=== PATIENT | male | born 1935 | race Caucasian/White ===

== ENCOUNTER 2018-04-14 15:06 | Outpatient (RCR) | payer OTHER, SELFPAY ==
[2018-04-14 21:04] LABS: Anion Gap 9.7 mmol/L (3-11); BUN 17 mg/dL (7-18); CO2 27.3 mmol/L (21.0-32.0); CREATININE 0.88 mg/dL (0.70-1.30); Calcium 8.8 mg/dL (8.5-10.1); Chloride 102 mmol/L (98-107); Glucose 85 mg/dL (70-100); Potassium 4.2 mmol/L (3.5-5.1); Sodium 139 mmol/L (136-145)
== END 2018-04-20 23:59 | disposition home or self-care (01) ==
LOC: NCHCN 15:06
PROVIDERS: PCP Internal Medicine; Visit Provider Internal Medicine
DX: I10 Essential (primary) hypertension (principal)
CPT/HCPCS: 80048

== ENCOUNTER 2020-04-04 15:21 | Outpatient (REF) | payer OTHER, SELFPAY ==
[2020-04-04 21:46] LABS: Anion Gap 10.9 mmol/L (3-11); BUN 17 mg/dL (7-18); CO2 24.1 mmol/L (21.0-32.0); CREATININE 0.81 mg/dL (0.70-1.30); Calcium 8.6 mg/dL (8.5-10.1); Chloride 107 mmol/L (98-107); Glucose 87 mg/dL (74-106); Potassium 4.2 mmol/L (3.5-5.1); Sodium 142 mmol/L (136-145)
== END 2020-04-04 15:41 ==
LOC: NCHCN 15:21
PROVIDERS: PCP Internal Medicine; Visit Provider Internal Medicine
DX: I10 Essential (primary) hypertension (principal)
CPT/HCPCS: 80048

== ENCOUNTER 2021-04-08 15:59 | Outpatient (REF) | payer OTHER, SELFPAY ==
[2021-04-08 22:09] LABS: Anion Gap 6.3 mmol/L (3-11); BUN 19 mg/dL (7-18); CO2 28.7 mmol/L (21.0-32.0); CREATININE 0.8 mg/dL (0.70-1.30); Calcium 8.8 mg/dL (8.5-10.1); Calculated LDL 56 mg/dL (<100); Chloride 106 mmol/L (98-107); Cholesterol 125 mg/dL (<200); Glucose 82 mg/dL (74-106); HDL Cholesterol 48 mg/dL (40-60); Potassium 4.4 mmol/L (3.5-5.1); Sodium 141 mmol/L (136-145); Triglyceride 105 mg/dL (<150)
== END 2021-04-08 16:00 | disposition home or self-care (01) ==
LOC: NCHCN 15:59
PROVIDERS: PCP Internal Medicine; Visit Provider Internal Medicine
DX: I10 Essential (primary) hypertension (principal); I89.0 Lymphedema, not elsewhere classified; E78.5 Hyperlipidemia, unspecified; Z86.79 Personal history of other diseases of the circulatory system
CPT/HCPCS: 80048; 80061

== ENCOUNTER 2022-04-27 18:26 | Outpatient (REF) | payer OTHER, SELFPAY ==
[2022-04-27 16:09] LABS: Anion Gap 6.8 mmol/L (3-11); BUN 19 mg/dL (7-18); CO2 26.2 mmol/L (21.0-32.0); CREATININE 0.8 mg/dL (0.70-1.30); Calcium 8.7 mg/dL (8.5-10.1); Chloride 106 mmol/L (98-107); Estimated GFR 87.27 (mL/min/1.73m2); Glucose 94 mg/dL (74-106); Potassium 4.1 mmol/L (3.5-5.1); Sodium 139 mmol/L (136-145)
== END 2022-04-27 18:27 | disposition home or self-care (01) ==
LOC: NCHCN 18:26
PROVIDERS: PCP Internal Medicine; Visit Provider Internal Medicine
DX: I10 Essential (primary) hypertension (principal); E78.5 Hyperlipidemia, unspecified; Z86.79 Personal history of other diseases of the circulatory system
CPT/HCPCS: 80048

== ENCOUNTER 2023-02-19 17:45 | Outpatient (REF) | payer OTHER, SELFPAY ==
[2023-02-22 09:54] LABS: Lyme Ab w Rflx to Lyme Confirm Negative (Negative)
[2023-02-22 14:29] LABS: Anaplasma phagocytophilum Negative (Negative); B. miyamotoi PCR Negative (Negative); Babesia divergens/MO-1 Negative (Negative); Babesia duncani Negative (Negative); Babesia microti Negative (Negative); Ehrlichia chaffeensis Negative (Negative); Ehrlichia ewingii/canis Negative (Negative); Ehrlichia muris eauclairensis Negative (Negative)
== END 2023-02-19 17:46 | disposition home or self-care (01) ==
LOC: NCHCN 17:45
PROVIDERS: PCP Internal Medicine; Visit Provider Internal Medicine
DX: I89.0 Lymphedema, not elsewhere classified (principal)
CPT/HCPCS: 87798; 86618

== ENCOUNTER 2023-09-20 21:05 | Outpatient (REF) | payer OTHER, SELFPAY ==
[2023-09-20 21:07] LABS: HCT 48.3 % (40.0-50.0); HGB 15.4 g/dL (13.5-17.5); MCH 29.2 pg (27.0-33.0); MCHC 31.9 % (32.0-36.0); MCV 92 fL (80-95); MPV 10.2 fL (8.0-11.0); Platelet Count 157 10^3/uL (130-400); RBC 5.28 10^6/uL (4.36-5.78); RDW-SD 47.3 fL; WBC 6.28 10^3/uL (4.4-10.8)
[2023-09-20 21:20] LABS: ALT 21 U/L (16-63); AST 17 U/L (15-37); Albumin 3.9 g/dL (3.4-5.0); Alkaline Phosphatase 54 U/L (46-116); BUN 22 mg/dL (7-18); Bilirubin, Total 0.5 mg/dL (0.2-1.0); CREATININE 0.8 mg/dL (0.70-1.30); Chloride 109 mmol/L (98-107); Estimated GFR 86.73 (mL/min/1.73m2); Glucose 85 mg/dL (74-106); Potassium 4.2 mmol/L (3.5-5.1); Sodium 141 mmol/L (136-145); Total Protein 7.1 g/dL (6.4-8.2)
== END 2023-09-20 21:06 | disposition home or self-care (01) ==
LOC: NCHCN 21:05
PROVIDERS: PCP Internal Medicine; Visit Provider Family Medicine
DX: Z00.00 Encounter for general adult medical examination without abnormal findings (principal)
CPT/HCPCS: 80053; 85027

== ENCOUNTER 2024-02-06 19:34 | Emergency (ER) | payer OTHER, SELFPAY ==
[2024-02-06] VITALS (43 sets, daily range): BP systolic 149–204; BP diastolic 48–89; PULSE 57–92; RESP 13–26; TEMP 36.7; O2SAT 91–97
--- NOTE | 2024-02-06 19:15 | RT.EKG_ITS ---
APPROVED REPORT Exam: Resting ECG Reason for Exam: chest pain Patient Location: E HR:62 bpm ECG Measurements Heart Rate 62 AXIS ME 231 P 35 QRSd 166 QRS -21 QT 452 T 157 QTc 459 Conclusion Sinus rhythm LBBB 1st degree heart block No STEMI
--- NOTE | 2024-02-06 19:30 | DI.CT_ITS ---
Exam(s) CT BRAIN NECK CTA EXAM: CT BRAIN NECK CTA CLINICAL HISTORY: Stroke. TECHNIQUE: Imaging Protocol: Axial CT angiography was performed with multi-slice acquisition and mu lti-planar and MIP reconstructions. CONTRAST MATERIAL: Intravenous: Omnipaque 350 Contrast volume:70 ml COMPARISON: No exams were available for comparison FINDINGS: CT Head W/O and W contrast: Ventricles and Extra axial spaces: Normal in size and morphology for the patient's age. Hemorrhage: None. Cerebral parenchyma: No evidence of acute infarct or mass. Prominent atrophy. Mild white matter c hanges of small vessel disease. Midline shift: None. Brainstem/Cerebellum: No acute findings.. Calvarium: Normal. Visualized Paranasal sinuses/Mastoids: Minimal mucosal thickening. Soft Tissues: Unremarkable. Enhancement: Normal. CTA Brain W: Internal Carotid Arteries: Petrous: Normal. Cavernous: Normal. Cerebral: Normal. Middle Cerebral Arteries: Right: No aneurysm, occlusion or significant stenosis. Left: No aneurysm, occlusion or significant stenosis. Anterior Cerebral Arteries: Right: No aneurysm, occlusion or significant stenosis. Left: No aneurysm, occlusion or significant stenosis. Posterior cerebral Arteries: Right: No aneurysm, occlusion or significant stenosis. Left: No aneurysm, occlusion or significant stenosis. Vertebral Arteries: Right: No aneurysm, occlusion or significant stenosis. Left: No aneurysm, occlusion or significant stenosis. Basilar Artery: No aneurysm, occlusion or significant stenosis. CTA Neck W: Common Carotid: Right: Minimal plaque. No dissection, occlusion or significant stenosis. Left: Mild calcific plaque at bulb. No dissection, occlusion or significant stenosis. External Carotid: Right: No dissection, occlusion or significant stenosis. Left: No dissection, occlusion or significant stenosis. Internal Carotid: Right: No dissection, occlusion or significant stenosis. Left: No dissection, occlusion or significant stenosis. Vertebral Artery: Right: No dissection, occlusion or significant stenosis. Left: No dissection, occlusion or significant stenosis. Lung Apices: No acute findings. Bones: No acute abnormality. Degenerative changes in the spine. Soft Tissues: Normal. IMPRESSION: 1. CTA brain: Normal CTA examination of the [place]. 2. Head CT: Atrophy. No acute abnormality. 3. CTA neck: No evidence of significant stenosis or dissection.. RADIATION DOSE DELIVERED: Total DLP DATA REPOSITORY: All CT scans at this facility are submitted to the National Radiology Data Registry (NRDR) Dose Index Registry (DIR) with the [employer] (ACR). RADIATION OPTIMIZATION: All CT scans at this facility use at least one of these dose optimization te chniques: automated exposure control; mA and/or kV adjustment per patient size (includes targeted exa ms where dose is matched to clinical indication); or iterative reconstruction.
--- NOTE | 2024-02-06 19:30 | RT.EKG_ITS ---
APPROVED REPORT Exam: Resting ECG Reason for Exam: CVA Patient Location: E HR:59 bpm ECG Measurements Heart Rate 59 AXIS RI 238 P 37 QRSd 173 QRS -19 QT 462 T 152 QTc 459 Conclusion Sinus bradycardia Rate 59 LBBB No STEMI, no priors available for comparison
--- NOTE | 2024-02-06 19:30 | RESPIRATORY ---
RT. responded to stroke alert. RT followed pt. upto CT scan, pt. talking in full sentences without respiratory distress or Pt. alert, following commands and maintaining patent airway spontaneously. MD verbally notified before RT left.
[2024-02-06] MEDS: Normal Saline - Diluent 50 ML VIAL IJ (19:51)
[2024-02-06] MEDS: Omnipaque 350 MG/ML 100 ML BTL IJ (19:54)
--- NOTE | 2024-02-06 20:19 | DI.VRAD_ITS ---
PROCEDURE INFORMATION: Exam: CTA Head Without And With Contrast, Arteriography Exam date and time: 02/06/2024 7:46 PM Age: 88 years old Clinical indication: Stroke-like symptoms; Left facial droop TECHNIQUE: Imaging protocol: Computed tomographic angiography of the head without and with contrast. Exam focused on the arteries. 3D rendering (Not supervised by radiologist): MIP and/or 3D reconstructed images were created by the technologist. Contrast material: 350; Contrast volume: 70 ml; Contrast route: INTRAVENOUS (IV); Other technique: STROKE PROTOCOL was implemented. COMPARISON: No relevant prior studies available. FINDINGS: ANTERIOR CIRCULATION: Right internal carotid artery: Intracranial segment is patent with no significant stenosis or occlusion. No aneurysm. Right middle cerebral artery: No occlusion or significant stenosis. No aneurysm. Right anterior cerebral artery: No occlusion or significant stenosis. No aneurysm. Left internal carotid artery: Intracranial segment is patent with no significant stenosis. No aneurysm. Left middle cerebral artery: No occlusion or significant stenosis. No aneurysm. Left anterior cerebral artery: No occlusion or significant stenosis. No aneurysm. POSTERIOR CIRCULATION: Right vertebral artery: No occlusion or significant stenosis. No aneurysm. Left vertebral artery: No occlusion or significant stenosis. No aneurysm. Basilar artery: No occlusion or significant stenosis. No aneurysm. Right posterior cerebral artery: No occlusion or significant stenosis. No aneurysm. Left posterior cerebral artery: No occlusion or significant stenosis. No aneurysm. HEAD: Brain: No hemorrhage. Mild white matter disease. No mass effect. Cerebral ventricles: Normal. No ventriculomegaly. Bones: Unremarkable. No acute fracture. Paranasal sinuses: Visualized sinuses are normal. No fluid levels. Mastoid air cells: Visualized mastoids are normal. No mastoid effusion. Soft tissues: Unremarkable. IMPRESSION: 1. No large vessel occlusion. 2. Unremarkable CT head. ASSESSMENT: ASPECTS ([place] Stroke Program Early CT Score) is 10. PROCEDURE INFORMATION: Exam: CTA Neck Without And With Contrast Exam date and time: 02/06/2024 7:46 PM Age: 88 years old Clinical indication: Stroke-like symptoms; Left facial droop TECHNIQUE: Imaging protocol: Computed tomographic angiography of the neck without and with contrast. Exam focused on the cervical segments of the vasculature. 3D rendering (Not supervised by radiologist): MIP and/or 3D reconstructed images were created by the technologist. Contrast material: 350; Contrast volume: 70 ml; Contrast route: INTRAVENOUS (IV); COMPARISON: No relevant prior studies available. FINDINGS: Right common carotid artery: No stenosis. No dissection or occlusion. Right internal carotid artery: No stenosis of the extracranial segment. No dissection or occlusion. Right external carotid artery: No occlusion or stenosis of the origin. Left common carotid artery: No stenosis. No dissection or occlusion. Left internal carotid artery: No stenosis of the extracranial segment. No dissection or occlusion. Left external carotid artery: No occlusion or stenosis of the origin. Right vertebral artery: No stenosis. No dissection or occlusion. Left vertebral artery: No stenosis. No dissection or occlusion. Soft tissues: No significant soft tissue swelling. Bones/joints: No acute fracture. IMPRESSION: No stenosis or occlusion. REFERENCES: NASCET CRITERIA. The degree of stenosis in the cervical segment of the internal carotid artery is based on NASCET criteria. Normal is no stenosis. Mild is less than 50% stenosis. Moderate is 50-69% stenosis. Severe is 70% to 99% stenosis. Total occlusion is no detectable patent lumen. Dictated and Authenticated by: Daniel Gaytan MD. Ordering:HEBERT Lal MD
[2024-02-06 20:25] LABS: ALT 15 U/L (16-63); AST 26 U/L (15-37); Albumin 3.4 g/dL (3.4-5.0); Alkaline Phosphatase 45 U/L (46-116); Anion Gap 5.7 mmol/L (3-11); BUN 22 mg/dL (7-18); CO2 28.3 mmol/L (21.0-32.0); Calcium 8.8 mg/dL (8.5-10.1); Chloride 105 mmol/L (98-107); Glucose 95 mg/dL (74-106); Magnesium 2.2 mg/dL (1.8-2.4); Potassium 4.8 mmol/L (3.5-5.1); Sodium 139 mmol/L (136-145); Total Protein 6.8 g/dL (6.4-8.2); Troponin I < 50 ng/L (< or =60)
[2024-02-06 20:54] LABS: Abs Immature Grans 0.02 10^3/uL (0.0-0.06); Absolute Basophil Count 0.09 10^3/uL (0.0-0.2); Absolute Eosinophil Count 0.49 10^3/uL (0.0-0.7); Absolute Lymphocyte Count 1.41 10^3/uL (1.2-3.4); Absolute Monocyte Count 0.59 10^3/uL (0.1-0.8); Absolute Neutrophil Count 3.62 10^3/uL (1.2-6.7); Basophils % 1.4 %; Eosinophils % 7.9 %; HCT 41.9 % (40.0-50.0); HGB 13.6 g/dL (13.5-17.5); Immature Grans % 0.3 %; Lymphocytes % 22.7 %; MCH 29.7 pg (27.0-33.0); MCHC 32.5 % (32.0-36.0); MCV 92 fL (80-95); MPV 9.3 fL (8.0-11.0); Monocytes % 9.5 %; Neutrophils % 58.2 %; Platelet Count 150 10^3/uL (130-400); RBC 4.58 10^6/uL (4.36-5.78); RDW 14.2 % (11.8-14.1); RDW-SD 48.1 fL; WBC 6.22 10^3/uL (4.4-10.8)
--- NOTE | 2024-02-06 22:03 | ED.GENADUL_ITS ---
Discharge Plan Disposition Patient Disposition: Transfer-Acute Inpatient Care Specific Acute Inpt Facility: [facility] Condition: Improving Discharge Details Clinical Impression: Stroke, Hypertension Primary Care Provider: Marcelo Vazquez ED Provider: Tiny Villanueva Home Meds and New Rx's Prescriptions: No Action aspirin 81 mg tablet 81 mg PO DAILY losartan [Cozaar] 100 mg tablet 100 mg PO DAILY pravastatin 40 mg tablet 40 mg PO DAILY HPI General Mode of arrival: EMS . Date/Time Provider Initiated Documentation: 02/06/24 19:36 . Limitations to Documentation: no limitations . Information obtained by: patient, family and EMS . HPI Narrative: MDM: This is an 88-year-old male patient with a past medical history significant for remote CVA, not on anticoagulation, presenting for evaluation of acute neurodeficits. My differential includes but is not limited to stroke, intracranial hemorrhage, certainly considered recrudescence given his remote stroke and recent life stressors. Considered metabolic and electrolyte derangements, kidney injury, liver disease. No seizure activity reported to suggest Miguel's paralysis. No trauma reported, no fever to suggest meningitis or encephalitis. Per protocol the patient was taken directly to the CT scanner, and a Noncon CT revealed no intracranial hemorrhage by this provider's read. CTA was obtained and [facility] teleneurology was consulted. Laboratory studies were obtained per protocol, as well as an EKG. Fingerstick blood glucose normal. ED Course: CTA shows no large vessel occlusion, though the patient's ongoing neurosymptoms are concerning for an acute infarct. Given that we are within the tPA window, a shared decision-making conversation was had with the family for administration of tenecteplase, pending completion of laboratory workup. The patient's blood pressure improved significantly and is below the threshold required for tPA administration. He has normal platelets, and the remainder of his laboratory studies have been largely reassuring specifically, the patient has no leukocytosis or anemia, does have a very mild elevation in his BUN to 22 but no comorbid creatinine elevation or electrolyte derangements. No evidence of kidney dysfunction. Unfortunately, the INR was unable to be completed in a timely fashion due to a QC failure of the machine. The safety of administration of tPA cannot be guaranteed in the absence of a INR less than 1.7, and for this reason TNK administration was delayed. INR was able to be obtained and is 1.1. The patient's blood pressure is below 180 systolic and so after conversation with the teleneuro provider, who performed a risks/benefits assessment and discussion with the patient and family as well as obtained consent for TNK, we administered 0.25 mg/kg (25 mg, max dose) of TNK as an IV push over 3 minutes. Following this administration, we did notice an increase in the patient's blood pressure to 185 systolic, and the patient was started on a nicardipine drip which was titrated to maintain a blood pressure below 180. The patient endorses improvement in his left-sided symptoms, including more accurate targeting with [id number] and loss of the sensory deficits of the left arm. I reached out to [facility], and the neuro ICU has graciously accepted this patient for admission to their hospital for ongoing care. At the time that the transfer was accepted the patient's NIH score has improved from 5-2. He remained hemodynamically improved and left our facility without incident. All further care per [facility] [place]. Tiny Villanueva MD HPI: This is a 88-year-old male patient presenting by EMS for strokelike symptoms. Last seen normal 6 PM, when the patient noted that something felt wrong. He called his family member at 615, and when they arrived at 630 he was noted to have left-sided facial droop with slurring of speech, weakness in his left arm and left leg, no headache or vision changes reported. EMS noted him to have a blood glucose in the 160s, hemodynamically appropriate though mildly hypertensive, and he was transported to our facility as a stroke alert. On arrival, the patient reports that he feels numbness in his arm and his face. He did not sustain trauma, does not take blood thinners, and was in his normal state of health prior to this event. He does endorse that his 2 weeks ago and he has been under significant emotional stress. Exam: Gen: awake and alert, in no apparent distress. Appears well nourished. HEENT: PERRL, EOMs full and without nystagmus. No visual field cuts. Left- sided facial droop appreciated, mild, with associated sensory deficits in the lower face. Neck: Supple, full range of motion, no observable masses Lungs: No increased work of breathing, lung sounds clear and equal bilaterally without wheezes, rhonchi, or rales. CV: Heart with regular rate and rhythm, no murmurs auscultated. Strong and symmetrical radial pulses. Abdomen: Soft, nondistended, non-tended to palpation. No rigidity, rebound tenderness, or guarding. MSK: No joint swelling, no redness. Full ROM without limitation, no external traumatic findings. Skin: No rashes or lesions to visualized skin. Normal color, warm, and dry. Neuro: Left-sided facial droop as noted above, mild slurring of speech but clear speech and no word finding difficulties. The patient has a minor left-sided arm/pronator drift, does not hit the bed, endorses sensory deficits of the affected left arm. He has poor targeting with [id number] of the left arm, has extinction of attention of the left lower extremity. Related Data Home Medications ?Medication ?Instructions ?Recorded ?Confirmed aspirin 81 mg tablet 81 mg PO DAILY 02/06/24 02/06/24 losartan 100 mg tablet (Cozaar) 100 mg PO DAILY 02/06/24 02/06/24 pravastatin 40 mg tablet 40 mg PO DAILY 02/06/24 02/06/24 Allergies Allergy/AdvReac Type Severity Reaction Status Date / Time No Known Allergies Allergy Verified 02/06/24 20:28 General Stated Complaint: CVA/TIA JONO: 2 Course Vital Signs Vital signs: Vital Signs Pulse Oximetry 95 02/06/24 20:01 Temperature 36.7 C 02/06/24 20:08 Temperature Source Oral 02/06/24 20:08 Pulse 59 L 02/06/24 21:01 Pulse 65 02/06/24 21:20 Respiratory Rate 14 02/06/24 21:25 Respiratory Effort Normal 02/06/24 21:25 Respiratory Depth Normal 02/06/24 21:25 Respiratory Pattern Normal 02/06/24 21:25 Blood Pressure 169/63 H 02/06/24 21:01 Blood Pressure Mean 99 02/06/24 21:01 Blood Pressure Position Supine 02/06/24 20:08 Pulse Oximetry 96 02/06/24 21:20 Oxygen Delivery Method Room Air 02/06/24 20:08 Oxygen Flow Rate 0 02/06/24 20:08 Pain Level 0 02/06/24 21:25 Lab/Test Results Lab/Test Results: Laboratory Tests Range/Units 08/02/06/24 02/06/24 19:36 19:40 20:45 WBC Cancelled 6.22 RBC Cancelled 4.58 Hgb Cancelled 13.6 Hct Cancelled 41.9 MCV Cancelled 92 MCH Cancelled 29.7 MCHC Cancelled 32.5 RDW Cancelled 14.2 H Plt Count Cancelled 150 MPV Cancelled 9.3 Immature Gran % Cancelled 0.3 Neutrophils % Cancelled 58.2 Band Neutrophils % Cancelled Lymphocytes % Cancelled 22.7 Atypical Lymphs % Cancelled Monocytes % Cancelled 9.5 Eosinophils % Cancelled 7.9 Basophils % Cancelled 1.4 Metamyelocytes % Cancelled Myelocytes % Cancelled Promyelocytes % Cancelled Other Cells % Cancelled Nucleated RBC % Cancelled 0.0 Absolute Neutrophils Cancelled 3.62 Absolute Lymphocytes Cancelled 1.41 Absolute Monocytes Cancelled 0.59 Absolute Eosinophils Cancelled 0.49 Absolute Basophils Cancelled 0.09 RBC Morphology Cancelled Polychromasia Cancelled Hypochromasia Cancelled Poikilocytosis Cancelled Basophilic Stippling Cancelled Anisocytosis Cancelled Microcytosis Cancelled Macrocytosis Cancelled Spherocytes Cancelled Tear Drop Cells Cancelled Ovalocytes Cancelled Stomatocytes Cancelled [place] Bodies Cancelled Zoila Cells/Echinocytes Cancelled Acanthocytes (Spur) Cancelled Schistocytes Cancelled Sodium (136-145) mmol/L 139 Potassium (3.5-5.1) mmol/L 4.8 Chloride (98-107) mmol/L 105 Carbon Dioxide (21.0-32.0) mmol/L 28.3 Anion Gap (3-11) mmol/L 5.7 BUN (7-18) mg/dL 22 H Creatinine (0.70-1.30) mg/dL 1.0 Est GFR (CKD-EPI 2020) (mL/min/1.73m2) 73.30 Glucose (74-106) mg/dL 95 Calcium (8.5-10.1) mg/dL 8.8 Magnesium (1.8-2.4) mg/dL 2.2 Total Bilirubin (0.2-1.0) mg/dL 0.60 AST (15-37) U/L 26 ALT (16-63) U/L 15 L Alkaline Phosphatase (46-116) U/L 45 L Troponin I (< or =60) ng/L < 50 Total Protein (6.4-8.2) g/dL 6.8 Albumin (3.4-5.0) g/dL 3.4 Medical Decision Making Quality:SDOH Health Related Social Needs: No Data to Display Critical Care Time Critical Care Time Critical Care Time: Yes Total Critical Care Time: 60 Attestation: Upon my evaluation, this patient had a high probability of imminent or life- threatening deterioration due to acute ischemic stroke, which required my direct attention, intervention, and personal management. I have personally provided 60 minutes of critical care time exclusive of time spent on separately billable procedures. Time includes review of laboratory data, radiology results, discussion with consultants, and monitoring for potential decompensation. Interventions were performed as documented above. Tiny Villanueva MD [facility] All Active Problems (Updated 02/07/24 @ 00:38 by Tiny Villanueva MD) Hypertension (Chronic) Stroke (Chronic) Social History Smoking/Tobacco Use Status: Never Smoking risk assessment performed?: Yes Alcohol Intake: never Drug use: Never Substance use type: does not use
[2024-02-06 22:08] LABS: INR 1.1 (0.9-1.1); Prothrombin Time 10.8 sec (9.1-11.1)
[2024-02-06] MEDS: Tenecteplase 50 MG KIT 25 MG IVP (22:14)
[2024-02-06] MEDS: niCARdipine 25 MG in Normal Saline 240 ML 50 MG IV (22:34)
[2024-02-07] VITALS (36 sets, daily range): BP systolic 136–167; BP diastolic 40–132; PULSE 59–68; RESP 10–22; O2SAT 89–95
[2024-02-07 01:04] LABS: Troponin I < 50 ng/L (< or =60)
--- NOTE | 2024-02-10 13:54 | NUR.NOTE ---
Access chart to reconcile EKG orders with EKGs in [facility]. Duplicate order cancelled. Nursing Note:
== END 2024-02-07 05:45 | disposition short-term general hospital (02) ==
PROVIDERS: Emergency Provider Emergency Medicine; PCP Internal Medicine
DX: I63.9 Cerebral infarction, unspecified (principal); I44.7 Left bundle-branch block, unspecified; I44.0 Atrioventricular block, first degree; I10 Essential (primary) hypertension; Z79.82 Long term (current) use of aspirin; Z86.73 Personal history of transient ischemic attack (TIA), and cerebral infarction without residual deficits
CPT/HCPCS: 36415; 70496; 70498; 80053; 82962; 93005; 96365; 96366; 96375; 99285; 83735; 84484; 85025; 85610; 93010; J2404; J3101; J3490

== ENCOUNTER 2024-05-10 15:02 | Outpatient (REF) | payer OTHER, SELFPAY ==
--- NOTE | 2024-05-10 11:45 | SKI_PTH ---
PATIENT: Ruddy Courtney LOC: NCN U#:[id number] AGE/SX: 88/M ROOM: RE05/10/[address]: Shawn Clayton : 1935 BED: DIS: 05/10/2024 SPEC #: [id number] RECD: 05/10/24 16:31 STATUS: AUGUSTUS REQ #: [id number] [place]: 05/10/24 11:[address]: Shawn Clayton DEPT: Surgical Specimen RECD BY: Mary Galvan Tissues: 1 - SKIN BIOPSY(SHAVE/PUNCH) Procedures: SKIN LEVEL 4 Comments: [id number]
== END 2024-05-10 15:03 | disposition home or self-care (01) ==
LOC: NCHCN 15:02
PROVIDERS: PCP Family Medicine; Visit Provider Family Medicine
DX: D18.01 Hemangioma of skin and subcutaneous tissue (principal)
CPT/HCPCS: 88305

== ENCOUNTER 2024-08-23 02:37 | Outpatient (CLI) | payer OTHER, SELFPAY ==
--- NOTE | 2024-08-23 10:30 | DI.US_ITS ---
APPROVED REPORT EXAM: Comprehensive 2D, Doppler, and color-flow Echocardiogram Patient Location: Out-Patient [place] Carrier: Roland Jaffe RDCS (AE) Indications: Heart failure with mildly reduced ejection fraction, abnormal ventricular wall motion Other Information Study Quality: Fair. Technically limited study due to body habitus. Conclusion Normal left ventricular wall thickness and chamber size. Ejection fraction is 45 to 50%. There are segmental wall motion abnormalities involving the posterior and anteroapical segments Normal right ventricular size and function Both atria are normal in size Trileaflet aortic valve without stenosis or regurgitation Mitral annular calcification. Mild mitral regurgitation Wall motion Left Ventricle The left ventricle is normal size. Left ventricular systolic function is mildly decreased. There is n ormal left ventricular wall thickness. Anteroapical and posterior wall motion abnormalities There is no ventricular septal defect visualized. LVEF is 45-50 % Right Ventricle The right ventricle is normal size. The right ventricular systolic function is normal. Atria The left atrium size is normal. The right atrium size is normal. Aortic Valve The aortic valve is normal in structure. Aortic valve is trileaflet. There is no aortic valvular sten osis. No aortic regurgitation is present. Mitral Valve Moderate mitral annular calcification. No evidence of mitral valve stenosis. Mild mitral regurgitatio n. Tricuspid Valve The tricuspid valve is normal in structure. There is no tricuspid valve stenosis. There is no tricusp id valve regurgitation noted. Pulmonic Valve Pulmonic valve is not well visualized. Great Vessels The aortic root is normal in size. The pulmonary artery is normal. The ascending aorta is normal in s ize. Aortic arch is not well visualized. IVC is normal in size and collapses >50% with inspiration. Pericardium There is no pericardial effusion. 2D Dimensions IVSD d PLAX 1.01 cm M: 0.6-1.2 Ao Root d 3.60 cm M: 3.1 - 3.7 LVPW d PLAX 1.03 cm M: 0.6 - 1.2 Ao Asc Diam d 3.19 cm M: 2.6 - 3.4 LVID d PLAX 5.23 cm M: 4.2 - 5.8 LVDs 4.21 cm M: 2.5 - 4.0 LV EF Teichholz 39.6 % FS 19.38 % LV EDV (Teich) 131.1 mL LV ESV (Teich) 79.2 mL Stroke Vol Index (Teich) 27.59 M-Mode TAPSE 1.60 cm (M/F) >1.7 Auto EF LV EDV A4C 187.3 mL LV EDV A2C 154.4 mL LV EDV BP 170.9 mL LV ESV A4C 106.9 mL LV ESV A2C 91.4 mL LV ESV BP 98.8 mL LVEF(%) A4C 43.0 % LVEF(%) A2C 40.8 % LVEF(%) BP 42.2 % LV SV A4C 80.5 ml LV SV A2C 63.0 ml LV SV BP 72.2 ml LV CO A4C 4.4 L/min LV CO A2C 3.3 L/min LV CO BP 3.8 L/min HR A4C 54.38 BPM HR A2C 51.73 BPM LV EDV Index (BP) LA Volume LA Length A4C 5.0 cm LA Length A2C 5.1 cm LA Area A4C s 12.65 cm2 LA Area A2C s 13.84 cm2 LA Vol A4C A-L 27.16 mL LA Vol A2C A-L 31.91 mL LA Vol Biplane A-L 29.7 mL LA Vol/BSA A4C A-L LA Vol/BSA A2C A-L LA Vol/BSA BP A-L 15.8 mL/m2 LA Vol A4C MOD 26.1 mL LA Vol A2C MOD 30.2 mL LA Vol BP MOD 28.3 mL RA Volume RA Area A4C 10.7 cm2 RA ESV A4C (A-L) 18.9mL RA Vol/BSA A4C A-L RA Length A4C 5.1 cm RA ESV A4C (MOD) 18.4mL LV Diastology MV E' medial 0.043 (>0.07 m/s) MV E Vmax 0.69 (0.4-1.3 m/s) MV E/E' MED 16.17 (<14) MV A Vmax 1.05 (0.4-1.3 m/s) MV E' lateral 0.118 (>0.1 m/s) E/A Ratio 0.7 MV E/E' LAT 5.86 (<14) MV E' Average 0.080 m/s MV E/E'(average) 8.60 Aortic Valve AoV Vmax 1.03 m/s LVOT Vmax 0.70 m/s AoV Peak Grad 4.2 mmHg LVOT Peak Grad 2.0 mmHg AoV Area (Vmax) 2.45 cm2 LVOT VTI 0.156 m AoV VTI 0.236 m LVOT Mean Grad 1.1 mmHg AoV Mean Sale[place]. 0.69 m/s LVOT SV 56.01 mL AoV Mean Grad 2.2 mmHg LVOT Diam s 2.10 cm AoV Area (VTI) 2.37 cm2 AV Regurg Peak Gr. 4.21 mmHg Velocity Ratio 0.68 Mitral Valve MV DT 100 (160-240 msec)
== END 2024-08-23 02:57 ==
LOC: DI 02:38
PROVIDERS: PCP Family Medicine; Visit Provider Internal Medicine Cardiovascular Disease
DX: I35.1 Nonrheumatic aortic (valve) insufficiency (principal); I34.0 Nonrheumatic mitral (valve) insufficiency; I50.22 Chronic systolic (congestive) heart failure; R93.89 Abnormal findings on diagnostic imaging of other specified body structures
CPT/HCPCS: 93306

== ENCOUNTER 2024-08-23 09:59 | Emergency (ER) | payer OTHER, SELFPAY ==
[2024-08-23 10:04] VITALS: BP 159/73; PULSE 64; RESP 16; TEMP 36.6; O2SAT 97
[2024-08-23 10:10] VITALS: BP 159/73; PULSE 64; RESP 16; TEMP 36.6; O2SAT 97
== END 2024-08-23 10:23 | disposition left against medical advice (07) ==
PROVIDERS: PCP Family Medicine
DX: Z53.21 Procedure and treatment not carried out due to patient leaving prior to being seen by health care provider (principal)

== ENCOUNTER 2024-12-06 14:25 | Outpatient (REF) | payer OTHER, SELFPAY ==
[2024-12-06 15:28] LABS: Abs Immature Grans 0.01 10^3/uL (0.0-0.06); Absolute Basophil Count 0.09 10^3/uL (0.0-0.2); Absolute Eosinophil Count 0.48 10^3/uL (0.0-0.7); Absolute Lymphocyte Count 1.06 10^3/uL (1.2-3.4); Absolute Monocyte Count 0.53 10^3/uL (0.1-0.8); Absolute Neutrophil Count 2.99 10^3/uL (1.2-6.7); Basophils % 1.7 %; Eosinophils % 9.3 %; HCT 46.7 % (40.0-50.0); HGB 14.9 g/dL (13.5-17.5); Immature Grans % 0.2 %; Lymphocytes % 20.5 %; MCH 28.9 pg (27.0-33.0); MCHC 31.9 % (32.0-36.0); MCV 91 fL (80-95); MPV 10.4 fL (8.0-11.0); Monocytes % 10.3 %; Platelet Count 168 10^3/uL (130-400); RBC 5.16 10^6/uL (4.36-5.78); RDW 14.9 % (11.8-14.1); RDW-SD 49.9 fL; WBC 5.16 10^3/uL (4.4-10.8)
[2024-12-06 16:53] LABS: ALT 31 U/L (16-63); AST 21 U/L (15-37); Albumin 3.8 g/dL (3.4-5.0); Alkaline Phosphatase 75 U/L (46-116); Anion Gap 7.7 mmol/L (3-11); BUN 19 mg/dL (7-18); Bilirubin, Total 0.5 mg/dL (0.2-1.0); CO2 28.3 mmol/L (21.0-32.0); CREATININE 0.6 mg/dL (0.70-1.30); Chloride 105 mmol/L (98-107); Estimated GFR 93.43 (mL/min/1.73m2); Glucose 91 mg/dL (74-106); LDL CHOLESTEROL 58 mg/dL (<100); Potassium 4.3 mmol/L (3.5-5.1); Sodium 141 mmol/L (136-145)
== END 2024-12-06 14:26 | disposition home or self-care (01) ==
LOC: NCHCN 14:25
PROVIDERS: PCP Family Medicine; Visit Provider Family Medicine
DX: Z00.00 Encounter for general adult medical examination without abnormal findings (principal); I10 Essential (primary) hypertension; E78.5 Hyperlipidemia, unspecified
CPT/HCPCS: 80053; 83721; 85025